=== PATIENT | male | born 1960 | race Caucasian/White ===

== ENCOUNTER 2024-01-26 08:52 | Emergency (ER) | payer MEDICAID ==
[~2024-01-26] VITALS: Ht 170.2 cm; Wt 74.8 kg
[2024-01-26 08:57] VITALS: BP 135/72; PULSE 109; RESP 16; TEMP 98.3; O2SAT 97
[2024-01-26] MEDS ORDERED: OMEP20CA14 MT (09:33)
[2024-01-26] MEDS ORDERED: IBUP-2029 MT (09:33)
== END 2024-01-26 10:58 | disposition home or self-care (01) ==
LOC: ER 08:52
DX: M54.2 Cervicalgia (principal); E11.9 Type 2 diabetes mellitus without complications; I10 Essential (primary) hypertension; Z90.49 Acquired absence of other specified parts of digestive tract
CPT/HCPCS: 99282

== ENCOUNTER 2024-07-14 21:54 | Emergency (ER) | payer MEDICAID ==
[~2024-07-14] VITALS: Ht 167.6 cm; Wt 88.2 kg
[~2024-07-14 21:54] MED LIST: IBUP-2029 MT; OMEP20CA14 MT
[2024-07-14 22:01] VITALS: TEMP 98.2; O2SAT 96
[2024-07-14] MEDS ORDERED: PROT20 MT (23:53)
[2024-07-15] MEDS: IBUPROFEN 400MG TABLET PO ONE (00:05)
[2024-07-15] MEDS ORDERED: AM250 MT (00:38)
[2024-07-15] MEDS ORDERED: AMOX1TAB49 MT (00:41)
[2024-07-15 01:29] VITALS: BP 159/90; PULSE 83; RESP 14; O2SAT 98
== END 2024-07-15 01:32 | disposition home or self-care (01) ==
LOC: ER 21:54
DX: H66.91 Otitis media, unspecified, right ear (principal); I10 Essential (primary) hypertension; E11.9 Type 2 diabetes mellitus without complications; K21.9 Gastro-esophageal reflux disease without esophagitis; Z90.49 Acquired absence of other specified parts of digestive tract
CPT/HCPCS: 99283